=== PATIENT | male | born 1950 | race Caucasian/White ===

== ENCOUNTER → 2017-05-05 | Outpatient (CLI) | payer BC ==
[~2017-05-05] MED LIST: LISINOPRIL20 MG PO; SIMVASTATIN40 MG PO
--- NOTE | ~2017-05-05 | EKG ---
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 05/06/17 0853 [id number] Tomas Alvarez MD, FACC /EPI
== END ==
LOC: CV 10:31
DX: Z01.818 Encounter for other preprocedural examination (principal)